=== PATIENT | male | born 2000 | race African-American/Black ===

== ENCOUNTER 2024-06-19 07:38 | Emergency (ER) | payer OTHER ==
[2024-06-19] MEDS ORDERED: HYDROCODONE/APAP 5/325 MG TAB ONE (07:47)
[2024-06-19] MEDS ORDERED: DIAZEPAM 5 MG TABLET ONE (07:48)
--- NOTE | 2024-06-19 10:04 | RAD REPORT ---
EXAMINATION: MRI LUMBAR SPINE WITHOUT CONTRAST CLINICAL INDICATION: Back pain, left leg pain TECHNIQUE: Multiplanar multisequence MR images were obtained of the lumbar spine WITHOUT intravenou s contrast. Unless otherwise specified, incidental findings do not require dedicated imaging follow-up. COMPARISON: No prior exam. FINDINGS: For purposes of this dictation, it is assumed that there are 5 non rib-bearing lumbar type vertebrae, and the most caudal fully segmented lumbar vertebra is labeled L5. ALIGNMENT: The lumbar spine has normal alignment. BONE: Vertebral bodies are normal in height. There is a normal marrow signal pattern. CORD: No abnormal signal in the cord. The conus medullaris terminates at a normal level. The nerve ro ots of the cauda equina appear normal. SOFT TISSUE: The included paraspinal soft tissues and retroperitoneal structures are grossly normal. EVALUATION OF THE INDIVIDUAL LEVELS: L1-2: Unremarkable. L2-3: Minimal posterior disc bulge and mild facet hypertrophy. L3-4: Mild posterior disc bulge is present. Mild facet and ligament flavum hypertrophy. Left lateral recess slightly attenuated. Mild narrowing the anterior inferior aspects of both exit foramina. L4-5: Mild posterior disc bulge with small posterior fissure. Mild facet and ligament hypertrophy. At tenuation of both lateral recesses noted. Mild narrowing of both exit foramina. L5-S1: Large extruded disc is present predominantly left paracentral location measuring 10 mm in ante rior posterior dimension. This results in left lateral recess stenosis and moderate central canal stenosis. Moderate narrowing left exit foramen seen with exiting nerve root contacting disc material. IMPRESSION: Large extruded disc as detailed L5-S1.
--- NOTE | 2024-06-19 10:33 | ER ---
Nurse's Notes [facility] Name: Balbir Sanchez Age: 24 yrs Sex: Male : 2000 Arrival Date: 06/19/2024 Time: 07:38 Bed 13 Private MD: Diagnosis: Other intervertebral disc displacement, lumbosacral region Presentation: 06/19 07:42 Chief complaint: EMS states: LUMBAR PAIN AFTER WEIGHT LIFTING. Coronavirus screen: At bp this time, the client does not indicate any symptoms associated with coronavirus-19. Ebola Screen: No symptoms or risks identified at this time. Initial Sepsis Screen: Does the patient meet any 2 criteria? No. Patient's initial sepsis screen is negative. Does the patient have a suspected source of infection? No. Patient's initial sepsis screen is negative. Risk Assessment: Do you want to hurt yourself or someone else? Patient reports no desire to harm self or others. Onset of symptoms is unknown. Care prior to arrival: Medication(s) given: FENTANYL 100 MCG IV initiated. 18 GA, in the right antecubital area. 07:42 Method Of Arrival: EMS: [facility] [employer] bp 07:42 Acuity: PABLO 3 bp Triage Assessment: 07:43 General: Appears in no apparent distress. uncomfortable, Behavior is cooperative, bp appropriate for age, anxious. Pain: Complains of pain in back. EENT: No deficits noted. Neuro: No deficits noted. Cardiovascular: No deficits noted. Respiratory: No deficits noted. GI: No signs and/or symptoms were reported involving the gastrointestinal system. : No signs and/or symptoms were reported regarding the genitourinary system. Derm: No deficits noted. Musculoskeletal: Circulation, motion, and sensation intact. Historical: - Allergies: 07:43 No Known Allergies; bp - Home Meds: 07:43 duloxetine oral [Active]; bp - PMHx: 07:43 Depressive disorder; bp - Immunization history:: Adult Immunizations up to date. - Infectious Disease History:: Denies. - Social history:: Smoking status: Patient denies any tobacco usage or history of. Screenin:44 [facility] ED Fall Risk Assessment (Adult) History of falling in the last 3 months, bp including since admission No falls in past 3 months (0 pts) Confusion or Disorientation No (0 pts) Intoxicated or Sedated No (0 pts) Impaired Gait No (0 pts) Mobility Assist Device Used No (0 pt) Altered Elimination No (0 pt) Score/Fall Risk Level 0 - 2 = Low Risk Oriented to surroundings. Abuse screen: Denies threats or abuse. Denies injuries from another. Nutritional screening: No deficits noted. Tuberculosis screening: No symptoms or risk factors identified. Assessment: 07:44 General: SEE TRIAGE NOTE. bp 09:21 Reassessment: PT RETURNED FROM MRI. Neuro: Level of Consciousness is awake, alert, bp obeys commands, Oriented to Appropriate for age. 11:57 Reassessment: Patient appears in no apparent distress at this time. bp 11:58 Reassessment: [facility] will be transporting pt. ETA 1 hour and 40 minutes. ss 12:00 Reassessment: ATTEMPTED TO CALL REPORT TO [facility] ER, NO ANSWER. bp 12:15 Reassessment: ATTEMPTED TO CALL REPORT TO [facility] ER, NO ANSWER. bp 12:30 Reassessment: ATTEMPTED TO CALL REPORT TO [facility] ER. NO ANSWER. bp 14:39 Reassessment: EMS AT B/S FOR TRANSPORT. bp Vital Signs: 07:42 BP 126 / 80; Pulse 52; Resp 16; Temp 98; Pulse Ox 100% ; bp 10:10 BP 124 / 75; Pulse 54; Resp 16; Pulse Ox 99% ; bp 11:57 BP 119 / 67; Pulse 50; Resp 16; Pulse Ox 97% ; bp 14:40 BP 116 / 84; Pulse 44; Resp 15; Pulse Ox 100% ; bp ED Course: 07:41 Patient arrived in ED. bp 07:43 Triage completed. bp 07:43 Grupo Virgen DO is Attending Physician. ms3 07:43 Arm band placed on. bp 07:44 Patient has correct armband on for positive identification. Provided Education on: NA. bp 07:44 Maintain EMS IV. Dressing intact. Good blood return noted. Site clean \T\ dry. Gauge \T\ bp site: 18 GA RAC. Flushed with 10 mL NS. 07:45 Danilo Jackson, RN is Primary Nurse. bp 09:29 MRI Lumbar Spine wo Con In Process Unspecified. EDMS 10:33 initiated a transfer with Tonia from [facility]. eb 10:42 per Tonia patient has been placed on a call list/ they have no beds currently at [facility]/ we can admit the patient to our facility and when a bed opens they will call us back/ or we can try sending the patient to another facility and let them know where they have been placed. 11:15 initiated a transfer with Lynette from the [facility]. 11:25 administrative approval given by Lynette Washburn/ patient has been accepted to [facility] ER/ Dr. Radha Morgan has accepted the patient in transfer without conference with Dr. Virgen/ report to be called to [phone]. 14:40 No provider procedures requiring assistance completed. Patient transferred, IV remains bp in place. Administered Medications: 07:50 Drug: HYDROcodone-acetaminophen PO 5 mg-325 mg 1 tabs PO once Route: PO; bp 10:19 Follow up: Response: No adverse reaction bp 07:50 Drug: Diazepam PO 5 mg PO once Route: PO; bp 10:18 Follow up: Response: No adverse reaction bp 11:54 Drug: morphine IVP or IV 4 mg IVP once over 4 mins Route: IVP; Infused Over: 4 mins; bp Site: right antecubital; 11:54 Follow up: Response: No adverse reaction bp 14:43 Drug: morphine IVP or IV 4 mg IVP once over 4 mins Route: IVP; Infused Over: 4 mins; bp Site: right antecubital; 14:43 Follow up: Response: Medication Administered at Departure bp Medication: 07:44 VIS not applicable for this client. bp Outcome: 10:32 ER care complete, transfer ordered by ms3 14:40 Transferred by ground EMS to [facility], Transfer form completed. bp 14:40 Condition: stable 14:40 Instructed on the need for transfer, 15:25 Patient left the ED. bp Signatures: Dispatcher [employer] EDMS Keyla Cambpell RN RN Danilo Del Toro RN RN Lulu Bower Marcus, DO DO ms3
--- NOTE | 2024-06-19 10:33 | EDPHYS ---
Physician Documentation [facility] Name: Balbir Sanchez Age: 24 yrs Sex: Male : 2000 Arrival Date: 06/19/2024 Time: 07:38 Bed 13 Private MD: ED Physician Grupo Virgen HPI: 06/19 07:45 This 24 yrs old Male presents to ER via EMS with complaints of Back Pain. ms3 07:45 Balbir Sanchez, a 24-year-old male, presents to the Emergency Department with severe pain ms3 in the lumbar spine and left leg and inability to stand or ambulate, which developed this morning after he got up at 4 AM. The patient reports that he felt a pop in his lower back, around the L5 area, while working out Jun 12. Since then, he has been experiencing difficulty walking, which progressed to the current inability to stand. The patient confirms having a fall this morning. He denies urinary incontinence, stating he has control over his urination. He reports after his injury on May 12 while working out he was prescribed ibuprofen and a muscle relaxer by a long-term doctor. He reports not having fever, chills, new tattoos, or abdominal issues.. Historical: - Allergies: 07:43 No Known Allergies; bp - Home Meds: 07:43 duloxetine oral [Active]; bp - PMHx: 07:43 Depressive disorder; bp - Immunization history:: Adult Immunizations up to date. - Infectious Disease History:: Denies. - Social history:: Smoking status: Patient denies any tobacco usage or history of. ROS: 07:45 Constitutional: Negative for fever, and chills. Cardiovascular: Negative for chest ms3 pain, and palpitations. Respiratory: Negative for shortness of breath, cough, wheezing, and pleuritic chest pain, Abdomen/GI: Negative for abdominal pain, nausea, vomiting, diarrhea, and constipation, 07:45 MS/Extremity: Negative for injury and deformity, Skin: Negative for injury, rash, and discoloration, 07:45 Back: Positive for back, Exam: 07:45 Constitutional: This is a well developed, well nourished patient who is awake, alert, ms3 and in no acute distress. Chest/axilla: Normal chest wall appearance and motion. Nontender with no deformity. Cardiovascular: Regular rate and rhythm with a normal S1 and S2. No gallops, murmurs, or rubs. Normal PMI, no JVD. No pulse deficits. Respiratory: Lungs have equal breath sounds bilaterally, clear to auscultation and percussion. No rales, rhonchi or wheezes noted. No increased work of breathing, no retractions or nasal flaring. Abdomen/GI: Soft, non-tender, with normal bowel sounds. No distension or tympany. No guarding or rebound. No evidence of tenderness throughout. 07:45 Back: pain, that is severe, of the lumbar area and left low back, ROM is painful, normal spinal alignment noted, muscle spasm, is appreciated in the left low back, Vital Signs: 07:42 BP 126 / 80; Pulse 52; Resp 16; Temp 98; Pulse Ox 100% ; bp 10:10 BP 124 / 75; Pulse 54; Resp 16; Pulse Ox 99% ; bp 11:57 BP 119 / 67; Pulse 50; Resp 16; Pulse Ox 97% ; bp 14:40 BP 116 / 84; Pulse 44; Resp 15; Pulse Ox 100% ; bp MDM: 07:43 Medical Screening Exam initiated ms3 07:45 Differential diagnosis: Fracture spinal injury, sprain, vertebral fracture. ms3 12:15 Data reviewed: vital signs, nurses notes, lab test result(s), and as a result, I will ms3 Transfer patient. Consideration of Admission/Observation Patient transferred to higher level of care with neurosurgical capabilities. I considered the following discharge prescriptions or medication management in the emergency department Medications were administered in the Emergency Department. See MAR. Historians other than the Patient: EMS: [facility]. Counseling: I had a detailed discussion with the patient and/or guardian regarding the historical points, exam findings, and any diagnostic results supporting the discharge/admit diagnosis, lab results, radiology results, the need to transfer to another facility, [facility] does not immediately have the required specialist. ED course: [facility] contacted for transfer and they are at capacity. [facility] contacted and patient accepted. Will transfer for neurosurgical evaluation due to broad disc bulge with left lower extremity weakness and pain.. 06/19 11:14 Order name: CBC with Diff; Complete Time: 12:17 ms3 06/19 11:14 Order name: BMP; Complete Time: 12:17 ms3 06/19 07:44 Order name: MRI Lumbar Spine wo Con; Complete Time: 10:20 ms3 Administered Medications: 07:50 Drug: HYDROcodone-acetaminophen PO 5 mg-325 mg 1 tabs PO once Route: PO; bp 10:19 Follow up: Response: No adverse reaction bp 07:50 Drug: Diazepam PO 5 mg PO once Route: PO; bp 10:18 Follow up: Response: No adverse reaction bp 11:54 Drug: morphine IVP or IV 4 mg IVP once over 4 mins Route: IVP; Infused Over: 4 mins; bp Site: right antecubital; 11:54 Follow up: Response: No adverse reaction bp 14:43 Drug: morphine IVP or IV 4 mg IVP once over 4 mins Route: IVP; Infused Over: 4 mins; bp Site: right antecubital; 14:43 Follow up: Response: Medication Administered at Departure bp Disposition Summary: 06/19/24 10:32 Transfer Ordered Notes: Reason: Higher level of care ms3 Condition: Stable ms3 Problem: new ms3 Symptoms: are unchanged ms3 Transfer Location: [facility](06/19/24 12:15) ms3 Accepting Physician: Dr Morgan(06/19/24 15:25) bp Diagnosis - Other intervertebral disc displacement, lumbosacral region ms3 Forms: - Medication Reconciliation Form ms3 - SBAR form ms3 Signatures: Dispatcher [employer] EDDanilo Horn, RN RN bp Grupo Virgen DO DO ms3 Corrections: (The following items were deleted from the chart) 12:15 10:32 Dr morataya ms3 12:15 10:32 [facility] ms3 ms3 15:25 12:15 Dr Morgan ms3 bp
[2024-06-19] MEDS ORDERED: MORPHINE 4 MG/ML SYR ONE ×2 (11:48→14:36)
[2024-06-19 12:01] LABS: Absolute Basophils 0.1 K/uL (0-0.5); Absolute Eosinophils 0.1 K/uL (0-0.5); Absolute Lymphocytes (CBC) 1.9 K/uL (0.7-4.9); Absolute Monocytes 0.4 K/uL (0.1-1.3); Absolute Neutrophil 4.5 K/uL (1.8-8.0); Basophils % 0.8 % (0-1.3); Eosinophils % 1.1 % (0-4.4); Hematocrit 43.8 % (39.6-49.0); Hemoglobin 15.5 g/dL (13.6-17.9); Lymphocytes % 27.4 % (15.3-44.8); MCH 30.2 pg (27.0-35.0); MCHC 35.3 g/dL (32.0-36.0); MCV 85.4 fL (80-100); Monocytes % 6.3 % (3.3-12.3); Neutrophils % 64.4 % (41.7-73.7); Nucleated Red Blood Cells % 0.1 % (0-0); Platelets 208 thou/uL (152-406); RBC Red Blood Cell Count 5.13 M/uL (4.33-5.43); Red Cell Distribution Width 13.5 % (12.1-15.2)
[2024-06-19 12:16] LABS: Anion Gap 9.9 mEq/L (5.0-15.0); Potassium 3.9 mEq/L (3.5-5.1)
[2024-06-19 15:29] VITALS: TEMP 98
[2024-06-19 15:33] VITALS: BP 116/84; O2SAT 100
== END 2024-06-19 15:25 | disposition short-term general hospital (02) ==
LOC: ER 07:38
DX: M51.27 Other intervertebral disc displacement, lumbosacral region (principal)
CPT/HCPCS: 36415; 72148; 80048; 85025; 96374; 99285